=== PATIENT | male | born 1960 | race African-American/Black ===

== ENCOUNTER 2025-02-19 13:17 | Inpatient (IN) | payer OTHER ==
[~2025-02-19] VITALS: Ht 172.7 cm; Wt 75.7 kg
[2025-02-19] MEDS ORDERED: PIPERACILLIN/TAZO 3.375G/100ML 100 ML IV STA (13:53)
[2025-02-19] MEDS: SODIUM CHLORIDE 0.9% 1,000 ML IV ONE ×2 (14:24→16:50)
[2025-02-19] MEDS: PIPERACILLIN/TAZO 3.375G/50ML 50 ML IV NR (14:25)
[2025-02-19 14:29] LABS: CHLORIDE 106 mEq/L (98-107); POTASSIUM 3.5 mEq/L (3.5-5.1); SODIUM 141 mEq/L (136-145)
[2025-02-19 14:30] LABS: CALCIUM 9.9 mg/dL (8.7-10.4); CARBON DIOXIDE 22 mEq/L (21-32)
[2025-02-19 14:34] LABS: INR 1.6; PROTHROMBIN TIME 16.5 sec (9.6-11.0)
[2025-02-19 14:35] LABS: CREATININE 4.6 mg/dL (0.6-1.3); GLUCOSE 103 mg/dL (70-105); UREA NITROGEN BLOOD 45 mg/dL (9-23)
[2025-02-19] MEDS: VANCOMYCIN 1G PREMIX 200 ML IV STA (14:36)
[2025-02-19 14:44] LABS: LACTIC ACID 2.3 mmol/L (0.4-2.0); TROPONIN I HIGH SENSITIVITY 125 ng/L (3.0-53)
[2025-02-19 14:55] LABS: HEMATOCRIT. 21.5 % (42.0-52.0); MEAN CORPUSCULAR HEMOGLOBIN 27.6 pg (28.0-32.0); MEAN PLATELET VOLUME 10.8 fl (7.4-10.4); PLATELET 144 x1000/uL (130-400); RED BLOOD CELL COUNT 2.33 mill/uL (4.7-6.1); WHITE BLOOD COUNT 22.4 x1000/uL (4.5-11.0)
[2025-02-19 14:59] LABS: DIFFERENTIAL COMMENT 1
[2025-02-19 15:02] LABS: HEMOGLOBIN. 6.4 g/dL (14.0-18.0)
[2025-02-19 16:51] LABS: ANISOCYTOSIS 2+; PLATELET ESTIMATE NORMAL
[2025-02-19 17:14] LABS: TROPONIN I HIGH SENSITIVITY 105 ng/L (3.0-53)
[2025-02-19] MEDS: GUAIFENESIN-DM 200MG-20MG/10ML UDC PO PRN (17:44)
[2025-02-19 20:00] VITALS: BP 97/54; PULSE 124; RESP 28; TEMP 36.8
[2025-02-19] MEDS ORDERED: PROC10TA65 PO (20:39)
[2025-02-19] MEDS ORDERED: ALLO300T2 PO (20:39)
[2025-02-19] MEDS ORDERED: ONDA-241 PO (20:39)
[2025-02-19] MEDS ORDERED: MIRT7.5T11 PO (20:39)
[2025-02-19] MEDS ORDERED: SILD20TA13 PO (20:39)
[2025-02-19] MEDS ORDERED: OXYB5TAB21 PO (20:39)
[2025-02-19] MEDS ORDERED: DASA50TA PO ×2 (20:39)
[2025-02-19] MEDS ORDERED: IBUP-2029 PO (20:39)
[2025-02-19] MEDS ORDERED: TAMSULOSIN (20:39)
[2025-02-19] MEDS ORDERED: PIPERACILLIN/TAZO 3.375G/100ML 100 ML IV SCH (21:00)
[2025-02-19] MEDS ORDERED: ONDANSETRON HCL 4MG/2ML INJ IV PRN (21:00)
[2025-02-19] MEDS ORDERED: ACETAMINOPHEN 325MG TABLET PO PRN (21:00)
[2025-02-19 22:00] VITALS: BP 101/57; PULSE 121; RESP 30; O2SAT 100
[2025-02-19] MEDS: SODIUM CHLORIDE 0.9% 1,000 ML IV SCH (22:38)
[2025-02-20] VITALS (17 sets, daily range): BP systolic 88–114; BP diastolic 47–65; PULSE 104–124; RESP 16–39; TEMP 36.7–37.1; O2SAT 97–100
[2025-02-20] MEDS: ACYCLOVIR 400 MG TABLET PO SCH (01:24)
[2025-02-20] MEDS: PIPERACILLIN/TAZO 3.375G/50ML 50 ML IV SCH (05:51)
[2025-02-20 06:53] LABS: CARBON DIOXIDE 22 mEq/L (21-32); CHLORIDE 108 mEq/L (98-107); POTASSIUM 3.4 mEq/L (3.5-5.1); SODIUM 143 mEq/L (136-145)
[2025-02-20 06:54] LABS: CALCIUM 9.5 mg/dL (8.7-10.4)
[2025-02-20 06:59] LABS: CREATININE 4.8 mg/dL (0.6-1.3); GLUCOSE 88 mg/dL (70-105); UREA NITROGEN BLOOD 53 mg/dL (9-23)
[2025-02-20 07:00] LABS: ALANINE AMINOTRANSFERASE 17 IU/L (10-49)
[2025-02-20 07:01] LABS: ALBUMIN 2.8 g/dL (3.2-4.8); ASPARTATE AMINOTRANSFERASE 35 IU/L (<34); BILIRUBIN TOTAL 2.4 mg/dL (0.1-1.0); PROTEIN TOTAL 5.6 g/dL (6.0-8.3)
[2025-02-20 08:30] LABS: MEAN CORPUSCULAR HEMOGLOBIN 26.7 pg (28.0-32.0); MEAN CORPUSCULAR HGB CONC 28.1 g/dL (31.0-37.0); MEAN CORPUSCULAR VOLUME 95.2 fL (80.0-94.0); MEAN PLATELET VOLUME 10.9 fl (7.4-10.4); PLATELET 131 x1000/uL (130-400); RED BLOOD CELL COUNT 2.11 mill/uL (4.7-6.1); RED CELL DISTRIBUTION WIDTH 28.7 % (11.6-14.6); WHITE BLOOD COUNT 22.7 x1000/uL (4.5-11.0)
[2025-02-20] MEDS: TAMSULOSIN HCL 0.4MG SR CAPSULE PO SCH (08:38)
[2025-02-20] MEDS: ALLOPURINOL 300 MG TABLET PO SCH (08:39)
[2025-02-20 08:40] LABS: DIFFERENTIAL COMMENT 1
[2025-02-20 08:44] LABS: HEMATOCRIT. 20.1 % (42.0-52.0); HEMOGLOBIN. 5.6 g/dL (14.0-18.0)
[2025-02-20] MEDS: DEXT 5%/0.45% NACL 1000ML 1,000 ML IV SCH (09:39)
[2025-02-20 10:56] LABS: BG BASE EXCESS -4.8 mmol/L (-2.0-3.0); BG DEOXYHEMOGLOBIN 4.6 % (0.0-5.0); BG METHEMOGLOBIN 0.3 % (0.5-1.5); BG OXYGEN SATURATION 95.3 % (94.0-98.0); BG OXYHEMOGLOBIN 93.1 % (94.0-98.0); BG PCO2 28.6 mmHg (35.0-48.0); BG PO2 69.2 mmHg (83.0-108.0); BG SAMPLE SITE RIGHT RADIAL; BG TOTAL HEMOGLOBIN 5.6 g/dL (13.5-17.5); BG VENT MODE ROOM AIR
[2025-02-20] MEDS ORDERED: MORPHINE SULFATE 2 MG/ML INJ (NOT FOR IM USE) IV PRN (11:00)
[2025-02-20] MEDS: PANTOPRAZOLE SODIUM 40 MG/VIAL IV SCH (11:07)
[2025-02-20] MEDS: BISACODYL 10MG SUPP PR NR (11:08)
[2025-02-20] MEDS: VANCOMYCIN 500MG/100ML IV NR (11:12)
[2025-02-20 11:20] LABS: AMMONIA 19 uMol/L (<32)
[2025-02-20 16:37] LABS: CLARITY URINE CLEAR (CLEAR); COLOR URINE DARK YELLOW (YELLOW); GLUCOSE URINE NEGATIVE (NEGATIVE); KETONES URINE TRACE (NEGATIVE); LEUKOCYTE ESTERASE URINE NEGATIVE (NEGATIVE); NITRITE URINE NEGATIVE (NEGATIVE); OCCULT BLOOD URINE NEGATIVE (NEGATIVE); PROTEIN URINE TRACE (NEGATIVE); SPECIFIC GRAVITY URINE 1.018 (1.005-1.030)
[2025-02-20 17:22] LABS: BACTERIA URINE 1+; RBC URINE 0-2 /hpf (0-2); SQUAMOUS EPITHELIAL CELL URINE FEW /lpf (RARE/1+); WBC URINE 0-2 /hpf (0-2)
[2025-02-20 18:15] LABS: ANISOCYTOSIS 3+; PLATELET ESTIMATE NORMAL
[2025-02-20] MEDS ORDERED: NALOXONE HCL 0.4MG/ML VIAL IV PRN (20:00)
[2025-02-20] MEDS: EPOETIN ALFA-EPBX 10,000 UNIT/ML VIAL SUBCUT NR (21:19)
[2025-02-21] VITALS (12 sets, daily range): BP systolic 91–119; BP diastolic 53–65; PULSE 100–117; RESP 20–36; TEMP 36.3–36.8; O2SAT 96–100
[2025-02-21] MEDS: GUAIFENESIN-DM 200MG-20MG/10ML UDC PO PRN (00:14)
[2025-02-21 06:46] LABS: CHLORIDE 109 mEq/L (98-107); POTASSIUM 3.4 mEq/L (3.5-5.1); SODIUM 142 mEq/L (136-145)
[2025-02-21 06:47] LABS: CARBON DIOXIDE 22 mEq/L (21-32)
[2025-02-21 06:52] LABS: CREATININE 4.3 mg/dL (0.6-1.3); GLUCOSE 128 mg/dL (70-105); IRON 13 ug/dL (65-175); URIC ACID 11.9 mg/dL (3.7-9.2)
[2025-02-21 06:53] LABS: ALANINE AMINOTRANSFERASE 16 IU/L (10-49); UREA NITROGEN BLOOD 61 mg/dL (9-23)
[2025-02-21 06:54] LABS: ALBUMIN 2.7 g/dL (3.2-4.8); ASPARTATE AMINOTRANSFERASE 39 IU/L (<34); BILIRUBIN DIRECT 2.3 mg/dL (<=3.0); CREATINE KINASE 80 IU/L (46-171); LACTATE DEHYDROGENASE > 750 IU/L (120-246); PHOSPHORUS 1.7 mg/dL (2.5-4.9); TOTAL IRON BINDING CAPACITY 320 ug/dl (250-425)
[2025-02-21 06:55] LABS: PROTEIN TOTAL 5.3 g/dL (6.0-8.3)
[2025-02-21 06:59] LABS: MEAN CORPUSCULAR HEMOGLOBIN 27.6 pg (28.0-32.0); MEAN CORPUSCULAR HGB CONC 29.6 g/dL (31.0-37.0); MEAN CORPUSCULAR VOLUME 93.2 fL (80.0-94.0); RED BLOOD CELL COUNT 2.07 mill/uL (4.7-6.1); WHITE BLOOD COUNT 27.9 x1000/uL (4.5-11.0)
[2025-02-21 07:48] LABS: DIFFERENTIAL COMMENT 1
[2025-02-21 07:50] LABS: BILIRUBIN TOTAL 3.6 mg/dL (0.1-1.0)
[2025-02-21 07:51] LABS: HEMATOCRIT. 19.3 % (42.0-52.0); HEMOGLOBIN. 5.7 g/dL (14.0-18.0)
[2025-02-21 09:16] LABS: VITAMIN B12 SERUM 495 pg/mL (211-911)
[2025-02-21] MEDS: ATOVAQUONE 750MG/5ML PACKET PO SCH (09:29)
[2025-02-21] MEDS: ALLOPURINOL 100 MG TABLET PO SCH (09:31)
[2025-02-21] MEDS: MAGNESIUM 2 G PREMIX 50 ML IV NR (13:11)
[2025-02-21] MEDS: POTASSIUM PHOSPHATE 15 MMOL in DEXT 5% WATER 245 ML IV NR (13:11)
[2025-02-21 13:36] LABS: NUCLEATED RED BLOOD CELLS 1 /100 WBC
[2025-02-21 13:38] LABS: ANISOCYTOSIS 4+
[2025-02-21 13:39] LABS: GIANT PLATELETS 1+; HYPOCHROMASIA 1+; PLATELET ESTIMATE NORMAL
[2025-02-21 13:40] LABS: MEAN PLATELET VOLUME 11.5 fl (7.4-10.4); PLATELET 143 x1000/uL (130-400)
[2025-02-21] MEDS: VANCOMYCIN 500MG/100ML IV SCH (18:43)
[2025-02-22] MEDS ORDERED: ATOVAQUONE 750 MG/5 ML UDC PO SCH (08:00)
== END 2025-02-22 03:40 | disposition short-term general hospital (02) | DRG 871 ==
LOC: ER 13:17 → 5EST 17:46 → EDBEDREQTM 17:49 → EDBEDREQSVC 17:49 → EDBEDREQ 17:49
PROVIDERS: ADMIT Internal Medicine; ATTEND Internal Medicine
DX: A41.9 Sepsis, unspecified organism (principal); G93.41 Metabolic encephalopathy; I21.A1 Myocardial infarction type 2; N17.0 Acute kidney failure with tubular necrosis; J96.01 Acute respiratory failure with hypoxia; R65.21 Severe sepsis with septic shock; I31.39 Other pericardial effusion (noninflammatory); C95.90 Leukemia, unspecified not having achieved remission; D68.9 Coagulation defect, unspecified; Z20.822 Contact with and (suspected) exposure to COVID-19; D64.9 Anemia, unspecified; I12.9 Hypertensive chronic kidney disease with stage 1 through stage 4 chronic kidney disease, or unspecified chronic kidney disease; N18.9 Chronic kidney disease, unspecified; E87.6 Hypokalemia; E78.5 Hyperlipidemia, unspecified; Z53.1 Procedure and treatment not carried out because of patient's decision for reasons of belief and group pressure; Z82.49 Family history of ischemic heart disease and other diseases of the circulatory system
CPT/HCPCS: 36415; 36600; 71045; 74176; 76770; 80048; 80053; 80076; 80202; 81003; 82140; 82375; 82550; 82607; 82728; 82805; 83540; 83550; 83605; 83615; 83735; 83880; 84100; 84145; 84484; 84550; 85025; 86850; 86900; 86920; 87426; 93306; 99291; A4606; J0885; J2470; J2543; J3370; J3475; J3490; J7030; J7060

== ENCOUNTER 2025-04-05 18:13 | Emergency (ER) | payer OTHER ==
[~2025-04-05] VITALS: Ht 172.7 cm; Wt 91.0 kg
[~2025-04-05 18:13] MED LIST: ALLO300T2 PO; DASA50TA PO; IBUP-2029 PO; MIRT7.5T11 PO; ONDA-241 PO; OXYB5TAB21 PO; PROC10TA65 PO; SILD20TA13 PO; TAMSULOSIN
[2025-04-05 18:18] VITALS: O2SAT 88
[2025-04-05 18:29] VITALS: PULSE 69; RESP 16
[2025-04-05] MEDS: DEXTROSE 50% WATER 50ML SYRINGE IV ONE (18:48)
[2025-04-05] MEDS: PIPERACILLIN/TAZO 3.375G/50ML 50 ML IV ONE (18:50)
[2025-04-05 19:15] LABS: MEAN CORPUSCULAR HEMOGLOBIN 40.2 pg (28.0-32.0); MEAN CORPUSCULAR HGB CONC 31.9 g/dL (31.0-37.0); MEAN CORPUSCULAR VOLUME 126.1 fL (80.0-94.0); MEAN PLATELET VOLUME 11.8 fl (7.4-10.4); PLATELET 207 x1000/uL (130-400); RED BLOOD CELL COUNT 0.73 mill/uL (4.7-6.1); RED CELL DISTRIBUTION WIDTH 35.2 % (11.6-14.6)
[2025-04-05] MEDS ORDERED: DEXT 5%/0.45% NACL 1000ML 1,000 ML IV SCH (19:15)
[2025-04-05] MEDS ORDERED: ACETAMINOPHEN 325MG TABLET PO PRN (19:15)
[2025-04-05 19:22] LABS: DIFFERENTIAL COMMENT 1
[2025-04-05 19:23] LABS: HEMOGLOBIN. 2.9 g/dL (14.0-18.0)
[2025-04-05] MEDS: DEXT 5%/0.45% NACL 1000ML 1,000 ML IV ONE (19:23)
[2025-04-05 19:24] LABS: CHLORIDE 99 mEq/L (98-107); HEMATOCRIT. 9.2 % (42.0-52.0); POTASSIUM 6.1 mEq/L (3.5-5.1); SODIUM 132 mEq/L (136-145)
[2025-04-05] MEDS: VANCOMYCIN 1G PREMIX 200 ML IV ONE (19:24)
[2025-04-05] MEDS: SODIUM CHLORIDE 0.9% (SEPSIS BOLUS) IV ONE (19:24)
[2025-04-05 19:25] LABS: CALCIUM 7.2 mg/dL (8.7-10.4)
[2025-04-05 19:30] LABS: GLUCOSE 242 mg/dL (70-105); UREA NITROGEN BLOOD 69 mg/dL (9-23)
[2025-04-05] MEDS ORDERED: PANTOPRAZOLE SODIUM 40 MG/VIAL IV SCH (19:30)
[2025-04-05 19:32] LABS: ALANINE AMINOTRANSFERASE 343 IU/L (10-49); ALBUMIN 2.1 g/dL (3.2-4.8); ASPARTATE AMINOTRANSFERASE > 1000 IU/L (<34); BILIRUBIN DIRECT 0.4 mg/dL (<=3.0); BILIRUBIN TOTAL 0.6 mg/dL (0.1-1.0); CREATINE KINASE 682 IU/L (46-171); LACTATE DEHYDROGENASE > 750 IU/L (120-246)
[2025-04-05 19:33] LABS: PROTEIN TOTAL 3.7 g/dL (6.0-8.3)
[2025-04-05 19:39] LABS: INR 3.8; PROTHROMBIN TIME 35.5 sec (9.6-11.0)
[2025-04-05 19:40] LABS: CREATININE 2.5 mg/dL (0.6-1.3)
[2025-04-05 19:44] LABS: CARBON DIOXIDE < 10 mEq/L (21-32); TROPONIN I HIGH SENSITIVITY 76 ng/L (3.0-53)
[2025-04-05 19:45] LABS: LACTIC ACID 15.2 mmol/L (0.4-2.0)
[2025-04-05] MEDS ORDERED: ENOXAPARIN 100MG/ML SYR SUBCUT NR (20:00)
[2025-04-05 20:15] VITALS: BP 66/31; PULSE 31; RESP 22; O2SAT 100
[2025-04-05] MEDS ORDERED: DOCUSATE SODIUM 100MG CAPSULE PO PRN (20:15)
[2025-04-05] MEDS ORDERED: GUAIFENESIN 200MG/10ML SUGAR FREE UDC PO PRN (20:15)
[2025-04-05] MEDS ORDERED: ONDANSETRON HCL 4MG/2ML INJ IV PRN (20:15)
[2025-04-05] MEDS ORDERED: IPRATROPIUM/ALBUTEROL 0.5-3(2.5)MG/3ML NEB HHN PRN (20:15)
[2025-04-05 20:16] LABS: NUCLEATED RED BLOOD CELLS 15 /100 WBC; PLATELET ESTIMATE NORMAL
[2025-04-05 20:17] LABS: ANISOCYTOSIS 3+
[2025-04-05] MEDS ORDERED: VANCOMYCIN 1GM/200ML PMX (BAXTER) IV NR (21:00)
[2025-04-05] MEDS ORDERED: LEVETIRACETAM 500MG PREMIX 100 ML IV SCH (21:00)
[2025-04-05] MEDS ORDERED: MORPHINE SULFATE 250 MG in DEXT 5% WATER 225 ML IV PRN (21:15)
[2025-04-06] MEDS ORDERED: PIPERACILLIN/TAZO 3.375G/50ML 50 ML IV SCH (06:00)
[2025-04-06] MEDS ORDERED: VANCOMYCIN 750MG PREMIX 150 ML IV SCH (20:00)
== END 2025-04-05 21:05 ==
LOC: ER 18:13 → EDBEDREQ 19:55 → EDBEDREQTM 19:56 → ENRESERV 20:20 → ER 21:05
DX: A41.9 Sepsis, unspecified organism (principal); R65.21 Severe sepsis with septic shock; J96.01 Acute respiratory failure with hypoxia; D64.9 Anemia, unspecified; N17.9 Acute kidney failure, unspecified; K72.00 Acute and subacute hepatic failure without coma; I21.4 Non-ST elevation (NSTEMI) myocardial infarction; R73.9 Hyperglycemia, unspecified; Z79.899 Other long term (current) drug therapy
CPT/HCPCS: 80076; 80048; 82550; 82728; 82962; 83880; 83605; 83615; 85025; 85384; 85610; 87040; 84484; 36415; 84145; 71045; 31500; 93005; 94070; 96365; 96375; 99291; 99292; J2543; J3370; J7030; Z7610 ×7; 94002